=== PATIENT | female | born 1980 | race Caucasian/White ===

== ENCOUNTER 2019-05-15 16:05 | Emergency (ER) | payer SELFPAY ==
--- NOTE | 2019-05-15 18:29 | RAD ---
XR Knee Lt 4 View STANDARD: 05/15/2019 6:07 PM CLINICAL INDICATION: Pain COMPARISON: None. FINDINGS: Fracture:No fracture. Arthropathy:None of significance. Incidental findings:None of significance. IMPRESSION: 1. No acute osseous abnormality.
[2019-05-15] MEDS ORDERED: Diazepam 5 MG TAB ONE (19:01)
--- NOTE | 2019-05-15 19:53 | ULT ---
DOPPLER VENOUS ULTRASOUND LEFT LOWER EXTREMITY: 05/15/19 INDICATION: Left lower extremity swelling and elevated D-dimer. TECHNIQUE: Giang scale, color Doppler, and vascular duplex with spectral analysis was performed of the deep venou s structures of both lower extremities. The common femoral vein, superficial femoral vein, popliteal vein, posterior tibial vein, proximal greater saphenous, and proximal profunda veins were assessed bi laterally. FINDINGS: There is normal compression, flow and augmentation seen within the deep venous structures of the left lower extremity. IMPRESSION: No evidence of DVT within the left lower extremity. POS: BH
== END 2019-05-15 19:46 | disposition home or self-care (01) ==
LOC: ERS 16:05
DX: M25.562 Pain in left knee (principal); J45.909 Unspecified asthma, uncomplicated; F41.9 Anxiety disorder, unspecified; F42.9 Obsessive-compulsive disorder, unspecified; Z79.899 Other long term (current) drug therapy; Z87.891 Personal history of nicotine dependence

== ENCOUNTER 2025-11-01 11:18 | Outpatient (CLI) | payer OTHER | END 2025-11-01 11:19 | disposition home or self-care (01) | LOC: SCSRAD 11:18 | PROVIDERS: ATTEND Orthopaedic Surgery | DX: M54.6 Pain in thoracic spine (principal); M54.50 Low back pain, unspecified | CPT/HCPCS: 72072; 72100 ==